=== PATIENT | female | born 2000 | race Hispanic/Latino ===

== ENCOUNTER 2023-11-17 08:30 | Inpatient (IN) | payer BC, MEDICAID ==
[2023-11-20 19:42] VITALS: BMI 33.2
[2023-11-20] MEDS: Lactated Ringer's 1,000 ML IV SCH (20:14)
[2023-11-20] MEDS ORDERED: Ibuprofen 800 MG TAB PO PRN (20:37)
[2023-11-20] MEDS ORDERED: Methylergonovine 0.2 MG/ML VIAL IM PRN (20:37)
[2023-11-20] MEDS ORDERED: Misoprostol 200 MCG TAB PR PRN (20:37)
[2023-11-20] MEDS ORDERED: Carboprost 250 MCG/ML AMP IM PRN (20:37)
[2023-11-20] MEDS ORDERED: Promethazine HCl 25 MG/ML VIAL IM PRN (20:37)
[2023-11-20] MEDS ORDERED: hydrALAZINE 20 MG/ML VIAL SLOW IVP PRN (20:37)
[2023-11-20] MEDS ORDERED: Diphenoxylate HCl/Atropine Tablet PO PRN (20:37)
[2023-11-20] MEDS ORDERED: Acetaminophen 500 MG TAB PO PRN (20:37)
[2023-11-20] MEDS ORDERED: Lidocaine 1% (PF) 30 ML VIAL SC PRN (20:37)
[2023-11-20] MEDS ORDERED: Tranexamic Acid 1,000 MG/10 ML VIAL IVP PRN (20:37)
[2023-11-20] MEDS ORDERED: Oxytocin 30 units/NS 500 ML 500 ML IV SCH (20:45)
[2023-11-20 21:02] LABS: Hematocrit 35.8 % (34.9-44.5); Hemoglobin 13.2 g/dL (12.0-15.5); Mean Corpuscular HGB CONC 36.9 g/dL (32.0-36.0); Mean Corpuscular Hemoglobin 34.3 pg (27.0-33.0); Mean Platelet Volume 11.6 fL (7.4-10.4); Platelet Count 196 10x3/uL (150-450); Red Blood Cell (RBC) Count 3.85 10x6/uL (3.90-5.03); White Blood Cell (WBC) Count 5.2 10x3/uL (3.5-10.5)
[2023-11-20 21:48] LABS: HBsAg Index 0.16 S/CO (0-0.99); Hep B Surf Ag - L&D Non-Reactive S/CO (NonReactive)
[2023-11-20 21:49] LABS: Syphilis Antibody Nonreactive (Nonreactive); Syphilis Antibody Index 0.04 S/CO (<1.00 Non-Reactive)
[2023-11-20] MEDS: Misoprostol 100 MCG TAB VAG SCH (21:59)
[2023-11-21] MEDS: Misoprostol 100 MCG TAB VAG SCH (03:21)
[2023-11-21] MEDS ORDERED: Dextrose 5%-Lactated Ringers 1,000 ML IV SCH (07:00)
[2023-11-21] MEDS: fentaNYL 50 mcg/mL 1 mL Vial ONE (08:42)
[2023-11-21] MEDS ORDERED: fentaNYL 50 mcg/mL 1 mL Vial SLOW IVP PRN (08:43)
[2023-11-21] MEDS: fentaNYL/Ropivacaine Epidural 100 ML ONE (10:49)
[2023-11-21] MEDS: Ondansetron PF 4 MG/2 ML Vial IVP PRN (10:49)
[2023-11-21] MEDS ORDERED: Lactated Ringer's 500 ML IV PRN (11:15)
[2023-11-21] MEDS ORDERED: Communication Order-Pharmacy FS SCH (11:15)
[2023-11-21] MEDS ORDERED: Promethazine HCl 25 MG/ML VIAL IM PRN ×2 (11:15→19:24)
[2023-11-21] MEDS ORDERED: Moisturizing Cream (Eucerin) 113 GM JAR TOP PRN (11:15)
[2023-11-21] MEDS ORDERED: Naloxone HCl 0.4 mg/ml Vial IVP PRN ×2 (11:15)
[2023-11-21] MEDS ORDERED: fentaNYL 2 mcg/Ropivacaine 0.2% Epidural 100 ML CADD EPIDURAL SCH (11:15)
[2023-11-21] MEDS ORDERED: diphenhydrAMINE 50 MG/ML VIAL IVP PRN (11:15)
[2023-11-21] MEDS ORDERED: Ondansetron PF 4 MG/2 ML Vial IVP PRN ×2 (11:15→19:24)
[2023-11-21] MEDS ORDERED: ePHEDrine Sulfate 50 MG/10 ML VIAL SLOW IVP PRN (11:15)
[2023-11-21] MEDS: Oxytocin 30 units/NS 500 ML 500 ML IV SCH (12:58)
[2023-11-21] MEDS ORDERED: Bisacodyl 10 MG SUPP PR PRN (19:24)
[2023-11-21] MEDS ORDERED: Lanolin Ointment 7 GM TUBE TOP PRN (19:24)
[2023-11-21] MEDS ORDERED: Preparation H Ointment 28 GM TUBE PR PRN (19:24)
[2023-11-21] MEDS ORDERED: Boostrix 0.5 ML (Tdap) VIAL (>/=7 yrs of age) IM ONE (19:24)
[2023-11-21] MEDS ORDERED: Milk Of Magnesia 30 ML UDCUP PO PRN (19:24)
[2023-11-21] MEDS ORDERED: hydrALAZINE 20 MG/ML VIAL SLOW IVP PRN (19:24)
[2023-11-21] MEDS: Acetaminophen 325 MG TAB PO PRN (19:36)
[2023-11-21] MEDS: Ibuprofen 800 MG TAB PO SCH (21:50)
[2023-11-21] MEDS: Benzocaine-Menthol 82.5 ML CAN TOP PRN (22:25)
[2023-11-21] MEDS: Docusate 100 MG CAP PO SCH (22:25)
[2023-11-22] MEDS: Lactated Ringer's 500 ML IV SCH (07:24)
[2023-11-22] MEDS: Ferrous Sulfate 325 MG TAB PO SCH (07:24)
[2023-11-22] MEDS: Prenatal Vitamin 1 TAB PO SCH (07:59)
[2023-11-22] MEDS ORDERED: Bupivacaine 0.25% HCL 30 ML VIAL ONE (10:00)
[2023-11-23 11:35] VITALS: BP 118/72; TEMP 98.3
== END 2023-11-23 12:55 | disposition home or self-care (01) | DRG 807 ==
LOC: CSHLD 11-20 18:20 → CSHPP 11-21 21:55
PROVIDERS: ADMIT Family Medicine; ATTEND Family Medicine
PROC: 10E0XZZ Delivery of Products of Conception, External Approach (ICD-10-PCS; principal; 2023-11-21)
PROC: 0KQM0ZZ Repair Perineum Muscle, Open Approach (ICD-10-PCS; 2023-11-21)
PROC: 10907ZC Drainage of Amniotic Fluid, Therapeutic from Products of Conception, Via Natural or Artificial Opening (ICD-10-PCS; 2023-11-21)
PROC: 3E0P7VZ Introduction of Hormone into Female Reproductive, Via Natural or Artificial Opening (ICD-10-PCS; 2023-11-21)
PROC: 0UQG7ZZ Repair Vagina, Via Natural or Artificial Opening (ICD-10-PCS; 2023-11-21)
DX: O70.1 Second degree perineal laceration during delivery (principal); Z37.0 Single live birth; Z3A.39 39 weeks gestation of pregnancy
CPT/HCPCS: 36415; 51702; 85027; 86780; 86850; 86900; 86901; 87340; J0665; J2405; J2590; J3010; J7120